=== PATIENT | male | born 1940 | race Caucasian/White ===

== ENCOUNTER 2016-12-24 11:04 | Emergency (ER) | payer MEDICARE, OTHER ==
[2016-12-24 11:40] VITALS: BP 127/68
--- NOTE | 2016-12-24 12:12 | EDM.PDOC ---
ED HPI GENERAL MEDICAL PROBLEM - General Chief Complaint: General Stated Complaint: CHILLS Time Seen by Provider: 12/24/16 11:34 Source of Information: Reports: Patient History Limitations: Reports: No Limitations - History of Present Illness INITIAL COMMENTS - FREE TEXT/NARRATIVE: 76 yo male presents with fever and chills 5 days after deer tick bite. sudden onset last evening. fatigue this morning. denies headache, cough, nasal congestion or dysuria. - Related Data Allergies Allergy/AdvReac Type Severity Reaction Status Date / Time No Known Allergies Allergy Verified 12/24/16 11:15 Home Meds: Home Meds Albuterol Sulfate [Ventolin Hfa] 2 puff INH QID 06/07/16 [History] Alfuzosin HCl [Alfuzosin HCl ER] 10 mg PO DAILY 06/07/16 [History] Aspirin [Adult Low Dose Aspirin EC] 81 mg PO DAILY 06/07/16 [History] Finasteride [Proscar] 5 mg PO DAILY 06/07/16 [History] Loratadine [Claritin] 10 mg PO DAILY PRN 06/07/16 [History] Nitroglycerin [Nitrostat] 0.4 mg SL ASDIRECTED PRN 06/07/16 [History] Simvastatin [Zocor] 80 mg PO BEDTIME 06/07/16 [History] Past Medical History HEENT History: Reports: Allergic Rhinitis, Hard of Hearing, Impaired Vision Cardiovascular History: Reports: Bypass, CAD, High Cholesterol Gastrointestinal History: Reports: GERD Genitourinary History: Reports: BPH, Prostate Disorder Dermatologic History: Reports: Eczema - Infectious Disease History Infectious Disease History: Reports: Chicken Pox, Measles, Mumps, Shingles - Past Surgical History Cardiovascular Surgical History: Reports: Coronary Artery Bypass GI Surgical History: Reports: Colonoscopy, Other (See Below) Other GI Surgeries/Procedures: rectal fistula repair Male Surgical History: Reports: None Social & Family History - Tobacco Use Smoking Status *Q: Never Smoker Second Hand Smoke Exposure: No - Caffeine Use Caffeine Use: Reports: Coffee - Alcohol Use Days Per Week of Alcohol Use: 2 Number of Drinks Per Day: 2 Total Drinks Per Week: 4 - Recreational Drug Use Recreational Drug Use: No ED ROS GENERAL - Review of Systems Review Of Systems: See Below Constitutional: Reports: Fever, Chills, Malaise HEENT: Denies: Ear Pain, Sinus Problem, Throat Pain Respiratory: Denies: Shortness of Breath, Wheezing Cardiovascular: Denies: Chest Pain, Blood Pressure Problem Skin: Reports: Rash ED EXAM, GENERAL - Physical Exam Exam: See Below Exam Limited By: No Limitations General Appearance: Alert, WD/WN, No Apparent Distress Ears: Normal External Exam, Normal Canal, Hearing Grossly Normal, Normal TMs Nose: Normal Inspection, Normal Mucosa Throat/Mouth: Normal Inspection, Normal Lips, Normal Teeth, Normal Gums, Normal Oropharynx, Normal Voice, No Airway Compromise Head: Atraumatic, Normocephalic Neck: Normal Inspection, Supple, Non-Tender. No: Lymphadenopathy (R), Lymphadenopathy (L) Respiratory/Chest: No Respiratory Distress, Lungs Clear, Normal Breath Sounds, No Accessory Muscle Use, Chest Non-Tender. No: Crackles, Rhonchi, Wheezing Cardiovascular: Normal Peripheral Pulses, Regular Rate, Rhythm, No Edema, No Murmur, No Rub Skin Exam: Warm, Dry, Intact, Rash (anterior superior chest at site of bite mild erythema not a target lesion) Course - Vital Signs Last Recorded V/S: Last Vital Signs Temp 38.3 C H 12/24/16 11:29 Pulse 77 12/24/16 11:29 Resp 20 12/24/16 11:29 BP 127/68 12/24/16 11:32 Pulse Ox 97 12/24/16 11:29 - Orders/Labs/Meds Orders: Active Orders 24 hr Category Date Time Status BABESIA MICROTI IGG AND IGM [REF] Stat Lab 12/24/16 11:55 Ordered EHRLICHIA CHAFFEENSIS, IGG&IGM [REF] Stat Lab 12/24/16 11:55 Ordered LYME AB SCREEN RFLX [REF] Stat Lab 12/24/16 11:55 Ordered Departure - Departure Time of Disposition: 12:11 Disposition: Home, Self-Care 01 Condition: Good Clinical Impression: Lyme disease Fever Qualifiers: Fever type: unspecified Qualified Code(s): R50.9 - Fever, unspecified - Discharge Information Instructions: Fever, Adult, Lyme Disease Referrals: Can Peters MD [Primary Care Provider] - Forms: ED Department Discharge Additional Instructions: Doxycycline 100 mg twice daily for 14 days your blood was drawn today for tick born illnesses if you are not feeling better by Sunday please follow-up with primary care provider - My Orders Last 24 Hours: My Active Orders 12/24/16 11:55 BABESIA MICROTI IGG AND IGM [REF] Stat EHRLICHIA CHAFFEENSIS, IGG&IGM [REF] Stat LYME AB SCREEN RFLX [REF] Stat - Assessment/Plan Last 24 Hours: My Active Orders 12/24/16 11:55 BABESIA MICROTI IGG AND IGM [REF] Stat EHRLICHIA CHAFFEENSIS, IGG&IGM [REF] Stat LYME AB SCREEN RFLX [REF] Stat
== END 2016-12-24 12:21 | disposition home or self-care (01) ==
LOC: JP.ED 11:04
DX: A69.20 Lyme disease, unspecified (principal); I25.810 Atherosclerosis of coronary artery bypass graft(s) without angina pectoris; E78.00 Pure hypercholesterolemia, unspecified; K21.9 Gastro-esophageal reflux disease without esophagitis; H54.7 Unspecified visual loss; Z98.890 Other specified postprocedural states; Z79.899 Other long term (current) drug therapy
CPT/HCPCS: 36415; 86618; 86666; 86666-59; 86753; 99283; 99284

== ENCOUNTER 2018-07-11 23:04 | Emergency (ER) | payer MEDICARE, OTHER ==
--- NOTE | 2018-07-11 23:44 | EDM.PDOC ---
ED HPI GENERAL MEDICAL PROBLEM - General Chief Complaint: General Stated Complaint: WEAKNESS,CHILLS,HEARTBURN Time Seen by Provider: 07/11/18 23:25 Source of Information: Reports: Patient, Family, Old Records, RN History Limitations: Reports: No Limitations - History of Present Illness INITIAL COMMENTS - FREE TEXT/NARRATIVE: 78 yo male presents with chills today associated with decreased energy. Was confused earlier, not now. No SOB, cough or dysuria. No GI sx's. Has a hx of occasional heart burn and had a bout today that he didn't tx with medications, but got relief with lying. Here now with his . [employer] skied about 4 mile yesterday without incident, today had to quit after 20 min due to fatigue. Didn't feel right before he started skiing. Had a UTI 2-3 yrs ago. Onset: Today Onset Date: 07/11/18 Onset Time: 13:20 Duration: Hour(s):, Waxing/Waning Location: Reports: Generalized Quality: Reports: Burning (heart burn earlier, not now) Severity: Moderate Improves with: Reports: Other (time/lying) Worsens with: Reports: Other (unknown) Context: Reports: Other (normally very active, not able to today. [place] feverish at home earlier. Did have acetaminophen 1000 mg at 3 pm today. ) Associated Symptoms: Reports: Confusion (brief earlier today), Chest Pain ( heart burn, resolved.), Fever/Chills (temp not measured.), Weakness. Denies: Cough, Rash, Shortness of Breath, Syncope Treatments DIRECTOR OF PUBLIC SAFETY: Reports: Acetaminophen (3 pm) - Related Data Allergies Allergy/AdvReac Type Severity Reaction Status Date / Time No Known Allergies Allergy Verified 12/24/16 11:15 Home Meds: Home Meds Albuterol Sulfate [Ventolin Hfa] 2 puff INH QID 06/07/16 [History] Alfuzosin HCl [Alfuzosin HCl ER] 10 mg PO DAILY 06/07/16 [History] Aspirin [Adult Low Dose Aspirin EC] 81 mg PO DAILY 06/07/16 [History] Finasteride [Proscar] 5 mg PO DAILY 06/07/16 [History] Loratadine [Claritin] 10 mg PO DAILY PRN 06/07/16 [History] Nitroglycerin [Nitrostat] 0.4 mg SL ASDIRECTED PRN 06/07/16 [History] Simvastatin [Zocor] 80 mg PO BEDTIME 06/07/16 [History] Past Medical History HEENT History: Reports: Allergic Rhinitis, Hard of Hearing, Impaired Vision Cardiovascular History: Reports: Bypass, CAD, High Cholesterol Gastrointestinal History: Reports: GERD Genitourinary History: Reports: BPH, Prostate Disorder Dermatologic History: Reports: Eczema - Infectious Disease History Infectious Disease History: Reports: Chicken Pox, Measles, Mumps, Shingles - Past Surgical History Cardiovascular Surgical History: Reports: Coronary Artery Bypass GI Surgical History: Reports: Colonoscopy, Other (See Below) Other GI Surgeries/Procedures: rectal fistula repair Male Surgical History: Reports: None Social & Family History - Tobacco Use Smoking Status *Q: Never Smoker - Caffeine Use Caffeine Use: Reports: Coffee - Recreational Drug Use Recreational Drug Use: No ED ROS GENERAL - Review of Systems Review Of Systems: See Below Constitutional: Reports: Fever, Chills, Malaise, Weakness. Denies: Diaphoresis HEENT: Reports: No Symptoms Respiratory: Reports: No Symptoms Cardiovascular: Reports: Chest Pain (? GERD, resolved). Denies: Blood Pressure Problem, Dyspnea on Exertion, Edema, Lightheadedness, Orthopnea, Palpitations, Syncope GI/Abdominal: Reports: No Symptoms : Reports: No Symptoms Musculoskeletal: Reports: No Symptoms Skin: Reports: No Symptoms Neurological: Reports: Confusion (transient, now resolved), Weakness ( generalized) ED EXAM, GENERAL - Physical Exam Exam: See Below Exam Limited By: No Limitations General Appearance: Alert, WD/WN, No Apparent Distress Eye Exam: Bilateral Eye: Normal Inspection Ears: Normal External Exam, Normal Canal, Hearing Grossly Normal, Normal TMs Ear Exam: Bilateral Ear: Auricle Normal, Canal Normal, TM normal Nose: Normal Inspection, Normal Mucosa, No Blood Throat/Mouth: Normal Inspection, Normal Lips, Normal Oropharynx, Normal Voice, No Airway Compromise Head: Atraumatic, Normocephalic Neck: Normal Inspection. No: Lymphadenopathy (R), Lymphadenopathy (L) Respiratory/Chest: No Respiratory Distress, Lungs Clear, Normal Breath Sounds, No Accessory Muscle Use Cardiovascular: Regular Rate, Rhythm, No Edema GI/Abdominal: Normal Bowel Sounds, Soft, Non-Tender, No Distention Back Exam: Normal Inspection. No: CVA Tenderness (R), CVA Tenderness (L) Extremities: Normal Inspection, Normal Range of Motion, Non-Tender, No Pedal Edema Neurological: Alert, Oriented, CN II-XII Intact, Normal Cognition, No Motor/ Sensory Deficits Psychiatric: Normal Affect, Normal Mood Skin Exam: Warm, Dry, Intact, Normal Color, No Rash Lymphatic: No Adenopathy Course - Vital Signs Last Recorded V/S: Last Vital Signs Temp 37.5 C 07/12/18 01:35 Pulse 87 07/11/18 23:17 Resp 18 07/11/18 23:17 BP 90/62 07/11/18 23:17 Pulse Ox 95 07/11/18 23:17 Orthostatic Blood Pressure [ 76/45 Standing] Orthostatic Blood Pressure [ 94/56 Sitting] Orthostatic Blood Pressure [ 90/57 Supine] - Orders/Labs/Meds Orders: Active Orders 24 hr Category Date Time Status Bladder Scan [RC] ASDIRECTED Care 07/12/18 00:11 Active Orthostatic Vital Signs [RC] ASDIRECTED Care 07/12/18 00:13 Active CULTURE URINE [RM] Stat Lab 07/12/18 00:01 Received Labs: Laboratory Tests 07/11/18 07/11/18 07/11/18 Range/Units 23:50 23:50 23:50 WBC 15.6 H (4.5-11.0) K/uL RBC 4.47 (4.30-5.90) M/uL Hgb 14.1 (12.0-15.0) g/dL Hct 41.5 (40.0-54.0) % MCV 93 (80-98) fL MCH 32 H (27-31) pg MCHC 34 (32-36) % Plt Count 176 (150-400) K/uL D-Dimer, Quantitative (0.0-400.0) ng/mL Sodium 139 L (140-148) mmol/L Potassium 3.8 (3.6-5.2) mmol/L Chloride 103 (100-108) mmol/L Carbon Dioxide 25 (21-32) mmol/L Anion Gap 14.8 H (5.0-14.0) mmol/L BUN 22 H (7-18) mg/dL Creatinine 1.0 (0.8-1.3) mg/dL Est Cr Clr Drug Dosing 62.86 mL/min Estimated GFR (MDRD) > 60 (>60) Glucose 139 H (74-106) mg/dL Calcium 8.9 (8.5-10.1) mg/dL Troponin I < 0.017 (0.000-0.056) ng/mL C-Reactive Protein 3.19 H (0.0-0.3) mg/dL Urine Color Urine Appearance Urine pH (4.5-8.0) Ur Specific [place] (1.008-1.030) Urine Protein (NEGATIVE) mg/dL Urine Glucose (UA) (NEGATIVE) mg/dL Urine Ketones (NEGATIVE) mg/dL Urine Occult Blood (NEGATIVE) Urine Nitrite (NEGAITVE) Urine Bilirubin (NEGATIVE) Urine Urobilinogen (NORMAL) mg/dL Ur Leukocyte Esterase (NEGATIVE) Urine RBC (0-5) Urine WBC (0-5) Ur Epithelial Cells Amorphous Sediment Urine Bacteria Urine Mucus 07/11/18 07/11/18 Range/Units 23:50 23:54 WBC (4.5-11.0) K/uL RBC (4.30-5.90) M/uL Hgb (12.0-15.0) g/dL Hct (40.0-54.0) % MCV (80-98) fL MCH (27-31) pg MCHC (32-36) % Plt Count (150-400) K/uL D-Dimer, Quantitative 145 (0.0-400.0) ng/mL Sodium (140-148) mmol/L Potassium (3.6-5.2) mmol/L Chloride (100-108) mmol/L Carbon Dioxide (21-32) mmol/L Anion Gap (5.0-14.0) mmol/L BUN (7-18) mg/dL Creatinine (0.8-1.3) mg/dL Est Cr Clr Drug Dosing mL/min Estimated GFR (MDRD) (>60) Glucose (74-106) mg/dL Calcium (8.5-10.1) mg/dL Troponin I (0.000-0.056) ng/mL C-Reactive Protein (0.0-0.3) mg/dL Urine Color Yellow Urine Appearance Cloudy Urine pH 5.0 (4.5-8.0) Ur Specific [place] 1.015 (1.008-1.030) Urine Protein Negative (NEGATIVE) mg/dL Urine Glucose (UA) Normal (NEGATIVE) mg/dL Urine Ketones 50 H (NEGATIVE) mg/dL Urine Occult Blood Moderate (NEGATIVE) Urine Nitrite Negative (NEGAITVE) Urine Bilirubin Negative (NEGATIVE) Urine Urobilinogen Normal (NORMAL) mg/dL Ur Leukocyte Esterase Large (NEGATIVE) Urine RBC 5-10 H (0-5) Urine WBC >100 H (0-5) Ur Epithelial Cells Few Amorphous Sediment Not seen Urine Bacteria Many Urine Mucus Not seen Meds: Medications Discontinued Medications Generic Name Dose Route Start Last Admin Trade Name [place] PRN Reason Stop Dose Admin Lactated Ringer's 1,000 mls @ 1,000 mls/hr 07/12/18 00:26 07/12/18 00:36 Ringers, Lactated IV 07/12/18 01:25 1,000 mls/hr BOLUS ONE Administration Ciprofloxacin/Dextrose 400 mg/ 200 mls @ 200 mls/hr 07/12/18 00:27 07/12/18 00:36 Premix IV 07/12/18 01:26 200 mls/hr ONETIME ONE Administration Tamsulosin HCl 0.4 mg 07/12/18 00:27 07/12/18 00:37 Flomax PO 07/12/18 00:28 0.4 mg ONETIME ONE Administration Departure - Departure Time of Disposition: 02:25 Disposition: Home, Self-Care 01 Condition: Fair Clinical Impression: Urinary retention UTI (urinary tract infection) Qualifiers: Urinary tract infection type: site unspecified Hematuria presence: without hematuria Qualified Code(s): N39.0 - Urinary tract infection, site not specified - Discharge Information *PRESCRIPTION DRUG MONITORING PROGRAM REVIEWED*: Not Applicable *COPY OF PRESCRIPTION DRUG MONITORING REPORT IN PATIENT AYAZ: Not Applicable Instructions: Urinary Tract Infection, Adult, [id number] Referrals: Fab Vance MD [Primary Care Provider] - Forms: ED Department Discharge Additional Instructions: Take ciprofloxacin every 12 hrs until gone. Take Flomax at bedtime daily. Continue your other medications. Recheck Sunday with your doctor in the clinic and to review your pending urine culture-call for an appt. Return if worse in the interim. - My Orders Last 24 Hours: My Active Orders 07/12/18 00:01 CULTURE URINE [RM] Stat 07/12/18 00:11 Bladder Scan [RC] ASDIRECTED 07/12/18 00:13 Orthostatic Vital Signs [RC] ASDIRECTED - Assessment/Plan Last 24 Hours: My Active Orders 07/12/18 00:01 CULTURE URINE [RM] Stat 07/12/18 00:11 Bladder Scan [RC] ASDIRECTED 07/12/18 00:13 Orthostatic Vital Signs [RC] ASDIRECTED
[2018-07-12] MEDS ORDERED: Lactated Ringers 1,000 ML IV ONE (00:26)
[2018-07-12] MEDS ORDERED: Tamsulosin 0.4 MG Cap.ER PO ONE (00:27)
[2018-07-12] MEDS ORDERED: Ciprofloxacin in D5W 400 MG in Premix Bag 1 BAG IV ONE ×2 (00:27)
[2018-07-12 02:27] VITALS: BP 115/55
== END 2018-07-12 02:43 | disposition home or self-care (01) ==
LOC: JP.ED 23:04
DX: N39.0 Urinary tract infection, site not specified (principal); R33.9 Retention of urine, unspecified; I25.10 Atherosclerotic heart disease of native coronary artery without angina pectoris; Z79.82 Long term (current) use of aspirin; Z95.1 Presence of aortocoronary bypass graft; Z79.899 Other long term (current) drug therapy
CPT/HCPCS: 36415; 51798; 80048; 81001; 84484; 85027; 85379; 86140; 87086; 87088; 87186; 96365; 99283; 99285; A9270; J0744; J7120

== ENCOUNTER 2019-05-17 05:12 | Emergency (ER) | payer MEDICARE ==
[2019-05-17 05:32] VITALS: BP 130/79; PULSE 52
--- NOTE | 2019-05-17 05:59 | EDM.PDOC ---
ED HPI GENERAL MEDICAL PROBLEM - General Chief Complaint: General Stated Complaint: FELL HIT HEAD AND BACK Time Seen by Provider: 05/17/19 05:47 Source of Information: Reports: Patient, Family History Limitations: Reports: No Limitations - History of Present Illness INITIAL COMMENTS - FREE TEXT/NARRATIVE: Patient presents for evaluation of injuries sustained after falling at his home while walking to the bathroom. He woke up at 0430 and walked down the [place] to the bathroom. When turning a corner, his states that his knees buckled and he fell backward down onto the surface of the floor. He was able to get to his hands and knees and remained in that position for a period of time cursing unhappily about the fall. His came to his side and noted that he was a little sweaty and shaky. He was able to stand up and eventually get back to bed. He has had persistent pain in the mid lumbar region since the fall. He also reports losing his balance and falling against a trailer one week ago and injuring the left side of his chest. The area is still uncomfortable although he was not seen for that injury. While using a chainsaw yesterday, he had left sided chest wall/rib pain pulling the starter cable. He also sustained a minor abrasion to the right arm and tonight's fall. Onset: Sudden Location: Reports: Back Quality: Reports: Dull Severity: Moderate Improves with: Reports: None Worsens with: Reports: Movement Context: Reports: Activity Associated Symptoms: Reports: No Other Symptoms Lower Back Pain Score (Numeric/FACES): 7 - Related Data Allergies Allergy/AdvReac Type Severity Reaction Status Date / Time No Known Allergies Allergy Verified 05/17/19 05:25 Home Meds: Home Meds Albuterol Sulfate [Ventolin Hfa] 2 puff INH QID 06/07/16 [History] Aspirin [Adult Low Dose Aspirin EC] 81 mg PO DAILY 06/07/16 [History] Loratadine [Claritin] 10 mg PO DAILY PRN 06/07/16 [History] Nitroglycerin [Nitrostat] 0.4 mg SL ASDIRECTED PRN 06/07/16 [History] Simvastatin [Zocor] 80 mg PO BEDTIME 06/07/16 [History] Cyanocobalamin (Vitamin B-12) [Vitamin B-12] 1,000 mcg PO DAILY 05/17/19 [ History] Past Medical History HEENT History: Reports: Allergic Rhinitis, Hard of Hearing, Impaired Vision Cardiovascular History: Reports: Bypass, CAD, High Cholesterol Gastrointestinal History: Reports: GERD Genitourinary History: Reports: BPH, Prostate Disorder Musculoskeletal History: Reports: Arthritis Dermatologic History: Reports: Eczema - Infectious Disease History Infectious Disease History: Reports: Chicken Pox, Measles, Mumps - Past Surgical History Cardiovascular Surgical History: Reports: Coronary Artery Bypass GI Surgical History: Reports: Colonoscopy, Other (See Below) Other GI Surgeries/Procedures: rectal fistula repair Male Surgical History: Reports: TURP-Transurethral Resection of Prostate Social & Family History - Tobacco Use Smoking Status *Q: Never Smoker Second Hand Smoke Exposure: No - Caffeine Use Caffeine Use: Reports: Coffee - Alcohol Use Days Per Week of Alcohol Use: 1 Number of Drinks Per Day: 2 Total Drinks Per Week: 2 - Recreational Drug Use Recreational Drug Use: No ED ROS GENERAL - Review of Systems Review Of Systems: See Below Musculoskeletal: Reports: Back Pain, Other (Left anterior rib pain since falling 10 May.) ED EXAM, GENERAL - Physical Exam Exam: See Below Exam Limited By: No Limitations General Appearance: Alert, Moderate Distress Head: Atraumatic Respiratory/Chest: Other (Left anterolateral rib pain on palpation at T6 level.) Back Exam: Vertebral Tenderness (L3 area.) Extremities: Other (Abrasion to dorsal surface of right arm, bleeding controlled.) Course - Vital Signs Last Recorded V/S: Last Vital Signs Temp 35.5 C 05/17/19 05:30 Pulse 52 L 05/17/19 05:30 Resp 16 05/17/19 05:30 BP 130/79 05/17/19 05:30 Pulse Ox 97 05/17/19 05:30 - Re-Assessments/Exams Free Text/Narrative Re-Assessment/Exam: 05/17/19 06:16 Will obtain imaging studies of low back and left ribs. 05/17/19 07:11 Lumbar imaging looks OK to me. There may be a small chip along one of the left ribs. I recommend using Tylenol 1000 mg three times a day for pain. Sent with prescription for tramadol 50 mg, 12 tablets, use as directed that he can fill if needed. Avoid painful movements. Use ice packs to painful areas 20 minutes off and on as needed. Departure - Departure Time of Disposition: 07:05 Disposition: Home, Self-Care 01 Condition: Good Clinical Impression: Contusion of lower back, Contusion of rib on left side, Abrasion NEC - Discharge Information *PRESCRIPTION DRUG MONITORING PROGRAM REVIEWED*: Not Applicable *COPY OF PRESCRIPTION DRUG MONITORING REPORT IN PATIENT AYAZ: Not Applicable Referrals: Tehrese Laguerre MD [Primary Care Provider] - Forms: ED Department Discharge Additional Instructions: Avoid painful movements. Apply cold packs/ice packs to painful area 20 minutes off and on. Use Tylenol 1000 mg three times a day regularly for pain. You could fill the prescription for tramadol if pain is not adequately controlled with Tylenol. Recheck with primary care if not better in one week. Return to ER if feeling worse in any way.
--- NOTE | 2019-05-17 06:50 | CRLCR ---
INDICATION: Left rib injury, anterolateral pain COMPARISON: None TECHNIQUE: Frontal view of the chest and 2 views of the left ribs FINDINGS/IMPRESSION: No displaced rib fracture is demonstrated. The lungs are clear. There is no pleural effusion or pneumothorax. The cardiomediastinal silhouette is normal. Sternotomy wires mediastinal clips likely related to history of CABG. Dictated by Mauricio Browning MD @ May 17 2019 6:47AM Signed by Dr. Mauricio Browning @ May 17 2019 6:48AM
--- NOTE | 2019-05-17 06:53 | CRLCR ---
INDICATION: Fall, pain TECHNIQUE: Three views of the lumbar spine. COMPARISON: none FINDINGS: There is normal height and alignment of the lumbar vertebral bodies. Lumbar lordosis is diminished. There is minimal degenerative disc height loss with mild anterior marginal osteophytosis at L1-2 thru L4-5. No fracture is demonstrated. Atherosclerotic calcifications are noted in the abdominal aorta. IMPRESSION: No acute abnormality of the lumbar spine. Mild multilevel degenerative disc disease. Dictated by Mauricio Browning MD @ May 17 2019 6:51AM Signed by Dr. Mauricio Browning @ May 17 2019 6:51AM
== END 2019-05-17 07:25 | disposition home or self-care (01) ==
LOC: JP.ED 05:12
DX: S30.0XXA Contusion of lower back and pelvis, initial encounter (principal); S20.212A Contusion of left front wall of thorax, initial encounter; S40.811A Abrasion of right upper arm, initial encounter; E78.00 Pure hypercholesterolemia, unspecified; I25.10 Atherosclerotic heart disease of native coronary artery without angina pectoris; Z79.82 Long term (current) use of aspirin; Z79.899 Other long term (current) drug therapy; W18.2XXA Fall in (into) shower or empty bathtub, initial encounter; Y93.01 Activity, walking, marching and hiking; Y92.002 Bathroom of unspecified non-institutional (private) residence as the place of occurrence of the external cause
CPT/HCPCS: 71101-LT; 72100; 99283-25